=== PATIENT | male | born 1970 | race African-American/Black ===

== ENCOUNTER 2018-03-24 22:58 | Inpatient (IN) | payer BC, OTHER ==
[~2018-03-24] VITALS: Ht 172.7 cm; Wt 55.3 kg
--- NOTE | ~2018-03-24 | EKG ---
[facility] [place] [address] ELECTROCARDIOGRAM REPORT Name: MARLON STRICKLAND Room #: 423-1 ADM IN M.R.#: [id number] Admission: 03/25/18 Attend Phys: Leodan Cordoba MD Discharge: Date of : 68 Report #: [id number] THIS REPORT FOR: //name// [facility] ED Test Date: 2018-03-25 Test Time: 00:28:13 Pat Name: MARLON STRICKLAND Department: Room: 423 1 Gender: M Emergency Medcl Emt: ROXANA : 1970 Requested By: Tasia Knight Order Number: [id number] MD: Measurements Intervals [place] Rate: 68 P: 8 IL: 230 QRS: -52 QRSD: 96 T: 37 QT: 386 QTc: 411 Interpretive Statements Sinus rhythm Prolonged [place] interval Left axis deviation No previous ECG available for comparison [email or web address] By: Siomara Stringer MD /EPI
[~2018-03-24 22:58] MED LIST: AUGMENTIN 875875 M1 PO; IBUPROFEN 800800 MG PO
[2018-03-24 23:12] VITALS: BP 163/77
[2018-03-24] MEDS ORDERED: IBUPROFEN 200200 M1 PO (23:19)
[2018-03-24 23:37] LABS: URINE CLARITY CLEAR; URINE COLOR YELLOW
[2018-03-24 23:38] LABS: URINE BILIRUBIN NEGATIVE (Negative); URINE GLUCOSE-RANDOM* NEGATIVE (Negative); URINE KETONES NEGATIVE (Negative); URINE PROTEIN (DIPSTICK) NEGATIVE (Negative)
[2018-03-24 23:39] LABS: URINE BLOOD 1+ (Negative); URINE LEUKOCYTES-REFLEX NEGATIVE (Negative); URINE NITRITE-REFLEX NEGATIVE (Negative); URINE UROBILINOGEN 0.2 E.U./dl (0.2-1.0)
[2018-03-24 23:46] LABS: HEMATOCRIT 42.8 % (42.0-52.0); HEMOGLOBIN 14.9 gm/dL (14.0-18.0); MCH 33.9 pg (26.0-34.0); MCHC 34.7 g/dL (28.0-37.0); MCV 97.6 fL (80.0-100.0); RBC 4.38 mil/uL (4.50-6.00); RDW 13.7 % (10.5-14.5); WBC 20.7 thou/uL (4.0-11.0)
[2018-03-24 23:48] LABS: BACTERIA-REFLEX 1-9 Few /HPF (None Seen); CASTS None Seen /LPF (None Seen); CRYSTALS None Seen /LPF (None Seen); SQUAMOUS 0-3 Few /LPF (0-3); URINE RBC 3-10 Few /HPF (0-2); URINE WBC-REFLEX 0-5 Rare /HPF (0-5)
[2018-03-24 23:54] LABS: ANION GAP 10 mmol/L (7-16); BUN 17 mg/dL (7-18); CALCIUM 9.1 mg/dL (8.5-10.1); CHLORIDE 104 mmol/L (98-107); CO2 23 mmol/L (21-32); CREATININE 1.1 mg/dL (0.7-1.3); GLUCOSE 109 mg/dL (74-106); SODIUM 137 mmol/L (136-145)
[2018-03-25 00:03] LABS: ALBUMIN 3.4 g/dL (3.4-5.0); LIPASE 166 U/L (73-393); SGOT 33 U/L (15-37); SGPT 36 U/L (30-65); TOTAL BILIRUBIN 0.4 mg/dL (<0.1-1.0); TOTAL PROTEIN 7.7 g/dL (6.4-8.2); TROPONIN-I <0.06 ng/mL (<0.06)
[2018-03-25 01:33] VITALS: BP 134/67
[2018-03-25 01:39] VITALS: BP 134/67
[2018-03-25 02:00] VITALS: BP 129/83
--- NOTE | 2018-03-25 03:32 | NUR ---
PT WAS ADMITTED TO THE UNIT AT APPROX 0200 FROM THE ER IN THE COMPANY OF HIS SPOUSE IN A STABLE CONDITION.ADMISSION HX,EDUCATION AND ASSESSMENT COMPLETED.PT DENIED PAIN ON ADMIT.PT UP ADLIB IN HER ROOM/CALL LIGHT WITHIN REACH.
[2018-03-25 05:35] LABS: HEMOGLOBIN 13.8 gm/dL (14.0-18.0); MCH 33.9 pg (26.0-34.0); MCHC 34.6 g/dL (28.0-37.0); RBC 4.08 mil/uL (4.50-6.00); RDW 13.8 % (10.5-14.5); WBC 13.1 thou/uL (4.0-11.0)
[2018-03-25 05:46] LABS: CALCIUM 8.7 mg/dL (8.5-10.1); POTASSIUM 4.3 mmol/L (3.5-5.1)
[2018-03-25 07:45] VITALS: BP 169/77
--- NOTE | 2018-03-25 08:52 | EKG ---
[address] [place] [address] ELECTROCARDIOGRAM REPORT Name: MARLON STRICKLAND Room #: 423-1 ADM IN M.R.#: [id number] Admission: 03/25/18 Attend Phys: Leodan Cordoba MD Discharge: Date of : 68 Report #: [id number] THIS REPORT FOR: //name// [facility] ED Test Date: 2018-03-25 Test Time: 00:27:41 Pat Name: MARLON STRICKLAND Department: Room: [facility] Gender: M Leasing Assistant: ROXANA : 1970 Requested By: Tasia Knight Order Number: [id number] MD: Ilir Dee Measurements Intervals [place] Rate: 64 P: 51 [place]: 225 QRS: 112 QRSD: 98 T: 45 QT: 398 QTc: 411 Interpretive Statements Sinus rhythm Prolonged [place] interval No previous ECG available for comparison Electronically Signed On 03-25-2018 8:51:58 SCIENTIFIC INFORMATICS ANALYST by Ilir Dee [email or web address] <ELECTRONICALLY SIGNED> By: Ilir Dee MD, [facility] 03/25/18 0851 0027 0027 Ilir Dee MD, FACC /EPI
--- NOTE | 2018-03-25 10:23 | NUR ---
Assess due to pt with low BMI 18.6, and indication of 2-13 lb wt loss. Admited with ileus and with noted liver, kidney lesions. NPO for possible EGD today. Not enough information in chart for complete eval. Followup again on Tuesday 03/28 for nutrition assessment
--- NOTE | 2018-03-25 13:40 | EKG ---
[address] [address] ELECTROCARDIOGRAM REPORT Name: MARLON STRICKLAND Room #: 423-1 ADM IN M.R.#: [id number] Admission: 03/25/18 Attend Phys: Leodan Cordoba MD Discharge: Date of : 68 Report #: [id number] THIS REPORT FOR: //name// [facility] ED Test Date: 2018-03-25 Test Time: 00:28:13 Pat Name: MARLON EM Department: Room: 423 1 Gender: M Electric Appliance Installer: ROXANA : 1970 Requested By: Tasia Knight Order Number: [id number] MD: Archie Irizarry Measurements Intervals [place] Rate: 68 P: 8 [place]: 230 QRS: -52 QRSD: 96 T: 37 QT: 386 QTc: 411 Interpretive Statements Sinus rhythm Prolonged [place] interval Left axis deviation Compared to ECG 03/25/2018 00:27:41 Left-axis deviation now present Electronically Signed On 03-25-2018 13:39:55 COACH by Archie Irizarry [email or web address] <ELECTRONICALLY SIGNED> By: Archie Irizarry MD 03/25/18 1339 0028 Archie Irizarry MD /DERICK
--- NOTE | 2018-03-25 20:09 | NUR ---
ASSUMED PT CARE AT 0700H. PT A&O X4. PT HAS NO S/S OF DISTRESS. PT STATES NO N/V NOR PAIN. PT BEING NPO. PT HAD ORDERS FOR CTA MESENTERIC ANGIOGRAM. PT CURRENTLY ON FULL LIQUIDS. PT STATES NOT TOLERATING MILK PRODUCTS. PT WENT AGAIN FOR CT ABD. PT CUREENTLY CONCERN WHEN TO START EATING. PT CONTINUES TO BE MONITORED FOR SAFETY.
[2018-03-25 20:40] VITALS: BP 171/85
[2018-03-26] VITALS: BP 154/76
--- NOTE | 2018-03-26 01:01 | NUR ---
PT REPORTS THAT NAUSEA IS RESOLVED. UP WALKING IN HALLWAYS.DENIES PAIN. ON FULL LIQUID DIET-TOLERATING WELL. BOWEL SOUNDS PRESENT AND ACTIVE.AFEBRILE. BP GETTING NETTER. NO FURTHER CONCERNS.
[2018-03-26 04:48] VITALS: BP 159/93
[2018-03-26 05:42] LABS: HEMATOCRIT 38.8 % (42.0-52.0); HEMOGLOBIN 13.4 gm/dL (14.0-18.0); MCH 33.4 pg (26.0-34.0); MCHC 34.5 g/dL (28.0-37.0); MCV 96.9 fL (80.0-100.0); RBC 4.01 mil/uL (4.50-6.00); RDW 13.6 % (10.5-14.5); WBC 9.9 thou/uL (4.0-11.0)
[2018-03-26 06:04] LABS: ALBUMIN 3.1 g/dL (3.4-5.0); CALCIUM 8.7 mg/dL (8.5-10.1); TOTAL BILIRUBIN 0.4 mg/dL (<0.1-1.0); TOTAL PROTEIN 6.6 g/dL (6.4-8.2)
[2018-03-26 13:35] VITALS: BP 159/93
--- NOTE | 2018-03-26 14:14 | NUR ---
PT ASSESSED AT START OF SHIFT. STATES ABD PAIN AND NAUSEA COMPLETELY GONE. ADVANCED TO SOLID FOOD AND TOLERATED IT WELL. PT DISCHARGING AT THIS TIME W/ ALL BELONGINGS.
== END 2018-03-26 14:13 | disposition home or self-care (01) | DRG 372 ==
LOC: ER 22:58 → EROBS 03-25 01:27 → 4E 03-25 01:27
PROVIDERS: Nurse Practitioner; Nurse Practitioner Family; Student in an Organized Health Care Education/Training Program; ADMIT Hospitalist
DX: A04.9 Bacterial intestinal infection, unspecified (principal); K56.7 Ileus, unspecified; A08.4 Viral intestinal infection, unspecified; F17.210 Nicotine dependence, cigarettes, uncomplicated; K76.9 Liver disease, unspecified; K76.0 Fatty (change of) liver, not elsewhere classified; N28.9 Disorder of kidney and ureter, unspecified; Z80.8 Family history of malignant neoplasm of other organs or systems; Z79.899 Other long term (current) drug therapy
CPT/HCPCS: 10084